=== PATIENT | female | born 1950 | race Caucasian/White ===

== ENCOUNTER → 2016-04-08 | Outpatient (CLI) | payer OTHER ==
[~2016-04-08] MED LIST: ALBU18 IN; ARIP15TA6 OR; ATOM60CA PO; BUPR-36 OR; BUPR100T71 OR; CITA20TA3 PO; ESZO1TAB9 OR; FLUT100M7 IN; LISI-713 PO; RANI300T3 PO
== END | disposition home or self-care (01) ==
LOC: XYW 07:57
PROVIDERS: ATTEND Internal Medicine Gastroenterology
DX: R10.11 Right upper quadrant pain (principal)
CPT/HCPCS: 78226; A9537

== ENCOUNTER → 2016-06-09 | Outpatient (CLI) | payer OTHER ==
[2016-06-09 10:12] LABS: Basophils # (auto) 0 uL; Basophils % (auto) 0.8 % (0.0-2.0); Eosinophils # (auto) 0.2 uL; Hematocrit 38.3 % (36.0-46.0); Hemoglobin 12.7 g/dL (12.2-16.2); Lymphocytes # (auto) 1.1 uL; Lymphocytes % (auto) 18.4 % (10.0-50.0); Mean Corpuscular Hemoglobin 28.3 pg (28.0-32.0); Mean Corpuscular Hgb Conc. 33.2 g/dL (32.0-36.0); Mean Corpuscular Volume 85.4 fL (80.0-100.0); Mean Platelet Volume 8.1 fL (7.4-10.4); Monocytes # (auto) 0.3 uL; Neutrophils # (auto) 4.3 uL; Neutrophils % (auto) 71.8 % (37.0-80.0); Platelet Count (auto) 239 10^3/uL (140-450); Red Cell Distribution Width 14.1 % (11.6-16.0)
[2016-06-09 10:25] LABS: INR 1.03 (0.9-1.15); Prothrombin Time 10.6 sec (9.37-12.3)
[2016-06-09 10:36] LABS: BUN/Creatinine Ratio 15.8; Bilirubin, Total 0.6 mg/dL (0.2-1.0); Calcium 9.1 mg/dL (8.5-10.1); Potassium 4.3 mmol/L (3.5-5.1); Total Protein 7.1 g/dL (6.4-8.2)
== END | disposition home or self-care (01) ==
LOC: LAB 09:13
PROVIDERS: ATTEND Internal Medicine Cardiovascular Disease
DX: Z01.810 Encounter for preprocedural cardiovascular examination (principal); R07.9 Chest pain, unspecified
CPT/HCPCS: 36415; 80053; 85025; 85610; 85730

== ENCOUNTER 2016-06-10 07:41 | Day surgery (SDC) | payer OTHER ==
[2016-06-10] MEDS ORDERED: LIDOCAINE 2%HCL (LOCAL ANESTH.) INJ 20ML MDV ONE (07:44)
[2016-06-10] MEDS ORDERED: IODIXANOL 320MG/ML 100ML BTL IV ONE ×2 (07:47→10:59)
[2016-06-10] MEDS ORDERED: PRO20T PO (08:42)
[2016-06-10] MEDS ORDERED: OXYB10TA13 PO (08:42)
[2016-06-10] MEDS ORDERED: VORT1TAB3 PO (08:42)
[2016-06-10] MEDS ORDERED: NITR0.4S29 SL (08:42)
[2016-06-10] MEDS ORDERED: HYDR-531 PO (08:42)
[2016-06-10] MEDS ORDERED: ATOR40TA52 PO (08:42)
[2016-06-10] MEDS ORDERED: POTA10TA51 PO (08:42)
[2016-06-10] MEDS ORDERED: PANT40T PO (08:42)
[2016-06-10] MEDS ORDERED: HYDR25TA4 PO (08:42)
[2016-06-10] MEDS ORDERED: ANGIOMAX 250 MG VIAL IV ONE (10:59)
[2016-06-10] MEDS ORDERED: MIDAZOLAM HCL 1MG/1ML-2 ML VIAL ONE (10:59)
[2016-06-10] MEDS ORDERED: EPTIFIBATIDE INJ (2MG/ML) 10ML VIAL IV ONE (10:59)
[2016-06-10] MEDS ORDERED: fentaNYL CITRATE 100 MCG/2 ML VL ONE (10:59)
[2016-06-10] MEDS ORDERED: SODIUM CHL 0.9% 0 ML ONE (10:59)
== END 2016-06-10 14:15 | disposition home or self-care (01) ==
LOC: CATH 07:41
PROVIDERS: ATTEND Internal Medicine Cardiovascular Disease
DX: I25.10 Atherosclerotic heart disease of native coronary artery without angina pectoris (principal); I50.30 Unspecified diastolic (congestive) heart failure; I10 Essential (primary) hypertension; J44.9 Chronic obstructive pulmonary disease, unspecified; J40 Bronchitis, not specified as acute or chronic; Z90.710 Acquired absence of both cervix and uterus; F31.9 Bipolar disorder, unspecified; F41.9 Anxiety disorder, unspecified; F32.9 Major depressive disorder, single episode, unspecified; Z87.891 Personal history of nicotine dependence
CPT/HCPCS: 93458; J2250; Q9967

== ENCOUNTER → 2016-08-05 | Outpatient (CLI) | payer OTHER ==
[~2016-08-05] MED LIST changes: -ATOM60CA PO; +ATOR40TA52 PO; -BUPR-36 OR; -BUPR100T71 OR; +HYDR-531 PO; +HYDR25TA4 PO; +NITR0.4S29 SL; +OXYB10TA13 PO; +PANT40T PO; +POTA10TA51 PO; +PRO20T PO; -RANI300T3 PO; +VORT1TAB3 PO
== END | disposition home or self-care (01) ==
LOC: XY 07:34
DX: K82.8 Other specified diseases of gallbladder (principal)
CPT/HCPCS: 78226; A9537

== ENCOUNTER 2016-09-24 06:15 | Day surgery (SDC) | payer OTHER ==
[2016-09-22 12:45] LABS: Urine RBC None Seen /hpf (0 - 4)
[2016-09-22 13:02] LABS: Basophils # (auto) 0 uL; Basophils % (auto) 0.7 % (0.0-2.0); CONDITION Y; Eosinophils # (auto) 0.2 uL; Eosinophils % (auto) 4.6 % (0.0-7.0); Hematocrit 36.5 % (36.0-46.0); Hemoglobin 12.8 g/dL (12.2-16.2); Mean Corpuscular Hemoglobin 30.4 pg (28.0-32.0); Mean Corpuscular Hgb Conc. 34.9 g/dL (32.0-36.0); Mean Platelet Volume 7.9 fL (7.4-10.4); Monocytes # (auto) 0.3 uL; Monocytes % (auto) 7.2 % (0.0-12.0); Neutrophils % (auto) 65.5 % (37.0-80.0); Platelet Count (auto) 240 10^3/uL (140-450); Red Cell Distribution Width 13.5 % (11.6-16.0); White Blood Cell 4.6 10^3/uL (4.4-10.8)
[2016-09-22 13:05] LABS: Urine Bilirubin Negative (Negative); Urine Blood Negative /uL (Negative); Urine Color Yellow (Yellow); Urine Glucose Normal (Normal); Urine Ketone Negative (Negative); Urine Nitrite Negative (Negative); Urine Urobilinogen Normal (Negative)
[2016-09-22 13:11] LABS: INR 0.96 (0.9-1.15); Partial Thromboplastin Time 30.1 sec (22.64-33.71); Prothrombin Time 10.5 sec (9.37-12.3)
[2016-09-22 13:16] LABS: Calcium 8.8 mg/dL (8.5-10.1); Potassium 4.2 mmol/L (3.5-5.1)
[2016-09-22 13:19] LABS: Albumin 3.9 g/dL (3.4-5.0); BUN/Creatinine Ratio 17.5
[2016-09-22 13:23] LABS: Bilirubin, Total 0.4 mg/dL (0.2-1.0); Total Protein 6.5 g/dL (6.4-8.2)
[~2016-09-24] VITALS: Ht 157.5 cm; Wt 68.0 kg
[~2016-09-24 06:15] MED LIST changes: +ASPI-231 PO; -CITA20TA3 PO; +ENA10T PO; -HYDR-531 PO; -OXYB10TA13 PO; +PERCOT PO
[2016-09-24] MEDS ORDERED: ceFOXitin 2GM/100ML D5W 100 ML IV ONE (06:25)
[2016-09-24] MEDS ORDERED: PHENYLEPHRINE HCL 10 MG/ML VL IV ONE (07:15)
[2016-09-24] MEDS ORDERED: BUPIVACAINE 0.25% INJ 50ML VIAL ONE (07:21)
[2016-09-24] MEDS ORDERED: BUPIVACAINE HCL 50 ML ONE (07:21)
[2016-09-24] MEDS ORDERED: LIDOCAINE 1% HCL (LOCAL ANESTH.) INJ 20ML MDV ONE (07:21)
[2016-09-24] MEDS ORDERED: DEXAMETHASONE SOD PHOS 10MG/1ML VIAL INJ ONE (07:26)
[2016-09-24] MEDS ORDERED: fentaNYL CITRATE 100 MCG/2 ML VL ONE (07:26)
[2016-09-24] MEDS ORDERED: MIDAZOLAM HCL 1MG/1ML-2 ML VIAL ONE (07:26)
[2016-09-24] MEDS ORDERED: MEPERIDINE HCL (50 MG/ML) 1 ML VIAL ONE (07:26)
[2016-09-24] MEDS ORDERED: PROPOFOL 10 MG/ML 20 ML IV ONE (07:26)
[2016-09-24] MEDS ORDERED: NEOSTIGMINE 1 MG/ML INJ (10mg/10ML VIAL) ONE (07:55)
[2016-09-24] MEDS ORDERED: ROCURONIUM 10MG/ML 10ML VIAL IV ONE (07:55)
[2016-09-24] MEDS ORDERED: GLYCOPYRROLATE 0.2 MG/ML 1ML VIAL ONE (08:15)
[2016-09-24] MEDS ORDERED: KETOROLAC TROMETH 30 MG/ML 1ML VIAL ONE (08:23)
[2016-09-24] MEDS ORDERED: ONDANSETRON HCL 4 MG/2 ML VIAL IV ONE (08:30)
[2016-09-24] MEDS ORDERED: LABETALOL HCL 5 MG/ML 4ML SYRINGE IV PRN (08:30)
[2016-09-24] MEDS ORDERED: KETOROLAC TROMETH 30 MG/ML 1ML VIAL IV ONE (08:30)
[2016-09-24] MEDS ORDERED: MORPHINE SULF INJ 2 MG/ML SYRINGE 1ML IV PRN (08:30)
[2016-09-24] MEDS ORDERED: HYDROmorphone HCL 2 MG/ML VL IV PRN (08:30)
[2016-09-24] MEDS ORDERED: ePHEDrine SULFATE 50 MG/ML AMP IV PRN (08:30)
[2016-09-24] MEDS ORDERED: MIDAZOLAM HCL 1MG/1ML-2 ML VIAL IV PRN (08:30)
[2016-09-24 09:45] VITALS: BP 144/78
== END 2016-09-24 09:59 | disposition home or self-care (01) ==
LOC: SUR 06:15
PROVIDERS: ATTEND Surgery
DX: K82.8 Other specified diseases of gallbladder (principal); K66.0 Peritoneal adhesions (postprocedural) (postinfection); J44.9 Chronic obstructive pulmonary disease, unspecified; G47.30 Sleep apnea, unspecified; Z90.710 Acquired absence of both cervix and uterus; F31.9 Bipolar disorder, unspecified; F41.9 Anxiety disorder, unspecified; F32.9 Major depressive disorder, single episode, unspecified; Z87.891 Personal history of nicotine dependence
CPT/HCPCS: 36415; 47562; 80053; 81001; 85025; 85610; 85730; 86850; 86900; 86901; 88304; J0694; J1100; J1170; J1885; J2001; J2175; J2250; J2370; J2704; J3010; J3490

== ENCOUNTER → 2017-03-24 | Outpatient (CLI) | payer OTHER ==
[2017-03-24 08:17] LABS: Albumin 3.4 g/dL (3.4-5.0); BUN/Creatinine Ratio 15.8; Bilirubin, Total 0.4 mg/dL (0.2-1.0); Calcium 8.6 mg/dL (8.5-10.1); Potassium 3.9 mmol/L (3.5-5.1); Total Protein 6.5 g/dL (6.4-8.2)
== END | disposition home or self-care (01) ==
LOC: LAB 07:24
PROVIDERS: ATTEND Internal Medicine
DX: I50.32 Chronic diastolic (congestive) heart failure (principal); J44.9 Chronic obstructive pulmonary disease, unspecified
CPT/HCPCS: 36415; 80053; 80061; 83036; 84443; 86141

== ENCOUNTER → 2017-11-25 | Outpatient (CLI) | payer OTHER ==
[2017-11-25 13:55] LABS: Basophils # (auto) 0.1 uL; Basophils % (auto) 0.7 % (0.0-2.0); Eosinophils # (auto) 0.1 uL; Eosinophils % (auto) 1.5 % (0.0-7.0); Hematocrit 39.5 % (36.0-46.0); Hemoglobin 13.6 g/dL (12.2-16.2); Lymphocytes # (auto) 1.4 uL; Lymphocytes % (auto) 18.2 % (10.0-50.0); Mean Corpuscular Hemoglobin 29.1 pg (28.0-32.0); Mean Corpuscular Hgb Conc. 34.5 g/dL (32.0-36.0); Mean Corpuscular Volume 84.3 fL (80.0-100.0); Monocytes # (auto) 0.5 uL; Monocytes % (auto) 6.1 % (0.0-12.0); Neutrophils # (auto) 5.5 uL; Neutrophils % (auto) 73.5 % (37.0-80.0); Nucleated Red Blood Cells % 0.2 %; Platelet Count (auto) 245 10^3/uL (140-450); Red Blood Cells 4.69 10^6/uL (4.0-5.20); Red Cell Distribution Width 14.1 % (11.8-14.3); White Blood Cell 7.5 10^3/uL (4.4-10.8)
[2017-11-25 14:01] LABS: INR 0.97 (0.9-1.15); Partial Thromboplastin Time 32.2 sec (23.78-33.04); Prothrombin Time 10.4 sec (9.27-12.13)
[2017-11-25 14:06] LABS: BUN/Creatinine Ratio 12.2; Bilirubin, Total 0.3 mg/dL (0.2-1.0); Calcium 8.8 mg/dL (8.5-10.1); Potassium 3.8 mmol/L (3.5-5.1); Total Protein 7.4 g/dL (6.4-8.2)
[2017-11-25 16:35] LABS: Urine Bacteria NONE SEEN /hpf (None Seen); Urine Blood Negative /uL (Negative); Urine Specific Gravity 1.013 (1.001-1.035); Urine WBC 1 /hpf (0 - 5)
== END | disposition home or self-care (01) ==
LOC: LAB 13:25
PROVIDERS: ATTEND Internal Medicine
DX: Z01.818 Encounter for other preprocedural examination (principal); I10 Essential (primary) hypertension; J44.9 Chronic obstructive pulmonary disease, unspecified; Z87.891 Personal history of nicotine dependence; Z90.49 Acquired absence of other specified parts of digestive tract; Z79.899 Other long term (current) drug therapy
CPT/HCPCS: 36415; 80053; 81001; 85025; 85610; 85730

== ENCOUNTER → 2017-12-31 | Outpatient (CLI) | payer OTHER ==
[2017-12-31 07:23] LABS: Urine Blood Negative /uL (Negative); Urine Specific Gravity 1.005 (1.001-1.035)
[2017-12-31 07:31] LABS: Basophils # (auto) 0.1 uL; Basophils % (auto) 1.1 % (0.0-2.0); Eosinophils # (auto) 0.3 uL; Eosinophils % (auto) 5.3 % (0.0-7.0); Hematocrit 37.8 % (36.0-46.0); Hemoglobin 12.8 g/dL (12.2-16.2); Lymphocytes # (auto) 1.1 uL; Lymphocytes % (auto) 21.8 % (10.0-50.0); Mean Corpuscular Hemoglobin 29.1 pg (28.0-32.0); Mean Corpuscular Hgb Conc. 33.8 g/dL (32.0-36.0); Monocytes # (auto) 0.3 uL; Monocytes % (auto) 7.1 % (0.0-12.0); Neutrophils # (auto) 3.2 uL; Neutrophils % (auto) 64.7 % (37.0-80.0); Nucleated Red Blood Cells % 0.1 %; Platelet Count (auto) 225 10^3/uL (140-450); Red Cell Distribution Width 14.7 % (11.8-14.3); White Blood Cell 4.9 10^3/uL (4.4-10.8)
[2017-12-31 07:42] LABS: INR 0.93 (0.9-1.15); Partial Thromboplastin Time 30.7 sec (23.78-33.04)
[2017-12-31 08:02] LABS: Albumin 3.8 g/dL (3.4-5.0); Bilirubin, Total 0.4 mg/dL (0.2-1.0); Calcium 8.8 mg/dL (8.5-10.1); Potassium 3.5 mmol/L (3.5-5.1)
== END | disposition home or self-care (01) ==
LOC: LAB 07:06
DX: Z01.812 Encounter for preprocedural laboratory examination (principal); H25.11 Age-related nuclear cataract, right eye; D68.32 Hemorrhagic disorder due to extrinsic circulating anticoagulants; Z79.01 Long term (current) use of anticoagulants
CPT/HCPCS: 36415; 80053; 81003; 85025; 85610; 85730

== ENCOUNTER → 2018-05-27 | Outpatient (CLI) | payer OTHER ==
[~2018-05-27] VITALS: Ht 157.5 cm; Wt 68.0 kg
[~2018-05-27] MED LIST changes: +ADENOSINE 57 MG in GIVE UN-DILUTED 0 ML IV ONE; +ALBUTEROL SULF 2.5 MG/0.5ML(0.5%) NEB SOLN ONE; +IPRATROPIUM BROM 0.5 MG/2.5ML INH SOL ONE
[2018-05-27 09:29] VITALS: BP 123/77
== END | disposition home or self-care (01) ==
LOC: XY 07:39
PROVIDERS: ATTEND Internal Medicine
DX: I10 Essential (primary) hypertension (principal); J44.9 Chronic obstructive pulmonary disease, unspecified; Z79.899 Other long term (current) drug therapy
CPT/HCPCS: 78452; 93017; 94640; A9500; J0153; J7611; J7644

== ENCOUNTER → 2018-06-03 | Outpatient (CLI) | payer OTHER ==
[~2018-06-03] MED LIST changes: -ADENOSINE 57 MG in GIVE UN-DILUTED 0 ML IV ONE; -ALBUTEROL SULF 2.5 MG/0.5ML(0.5%) NEB SOLN ONE; -IPRATROPIUM BROM 0.5 MG/2.5ML INH SOL ONE
== END | disposition home or self-care (01) ==
LOC: XY 07:26
PROVIDERS: ATTEND Internal Medicine
DX: I10 Essential (primary) hypertension (principal); J44.9 Chronic obstructive pulmonary disease, unspecified; Z79.899 Other long term (current) drug therapy
CPT/HCPCS: 93306

== ENCOUNTER → 2018-11-11 | Outpatient (CLI) | payer OTHER ==
[~2018-11-11] MED LIST changes: -ENA10T PO; +ENAL10TA PO
[2018-11-11 08:16] LABS: Basophils # (auto) 0 uL; Basophils % (auto) 0.9 % (0.0-2.0); Eosinophils # (auto) 0.1 uL; Eosinophils % (auto) 2.5 % (0.0-7.0); Hematocrit 37.1 % (36.0-46.0); Hemoglobin 12.5 g/dL (12.2-16.2); Lymphocytes # (auto) 1.1 uL; Lymphocytes % (auto) 26.2 % (10.0-50.0); Mean Corpuscular Hemoglobin 29.2 pg (28.0-32.0); Mean Corpuscular Hgb Conc. 33.5 g/dL (32.0-36.0); Monocytes # (auto) 0.3 uL; Monocytes % (auto) 7.6 % (0.0-12.0); Neutrophils # (auto) 2.7 uL; Neutrophils % (auto) 62.8 % (37.0-80.0); Platelet Count (auto) 208 10^3/uL (140-450); Red Blood Cells 4.27 10^6/uL (4.0-5.20); Red Cell Distribution Width 14.4 % (11.8-14.3); White Blood Cell 4.3 10^3/uL (4.4-10.8)
[2018-11-11 08:35] LABS: Albumin 3.5 g/dL (3.4-5.0); BUN/Creatinine Ratio 13.4; Bilirubin, Total 0.3 mg/dL (0.2-1.0); Calcium 8.7 mg/dL (8.5-10.1); Total Protein 6.6 g/dL (6.4-8.2)
== END | disposition home or self-care (01) ==
LOC: LAB 07:13
PROVIDERS: ATTEND Internal Medicine
DX: I25.10 Atherosclerotic heart disease of native coronary artery without angina pectoris (principal); I10 Essential (primary) hypertension
CPT/HCPCS: 36415; 80053; 80061; 83036; 84439; 84443; 85025; 85652

== ENCOUNTER → 2019-02-15 | Day surgery (SDC) | payer OTHER ==
[2019-02-11 11:03] LABS: Urine Blood Negative /uL (Negative); Urine Specific Gravity 1.006 (1.001-1.035)
[2019-02-11 11:35] LABS: Basophils # (auto) 0 uL; Basophils % (auto) 0.7 % (0.0-2.0); Eosinophils # (auto) 0.3 uL; Hematocrit 39.9 % (36.0-46.0); Hemoglobin 13.4 g/dL (12.2-16.2); Lymphocytes # (auto) 1.3 uL; Lymphocytes % (auto) 21.8 % (10.0-50.0); Mean Corpuscular Hemoglobin 28.9 pg (28.0-32.0); Mean Corpuscular Hgb Conc. 33.6 g/dL (32.0-36.0); Mean Corpuscular Volume 86.2 fL (80.0-100.0); Monocytes # (auto) 0.6 uL; Monocytes % (auto) 10.5 % (0.0-12.0); Neutrophils # (auto) 3.6 uL; Platelet Count (auto) 224 10^3/uL (140-450); Red Blood Cells 4.63 10^6/uL (4.0-5.20); Red Cell Distribution Width 14.2 % (11.8-14.3); White Blood Cell 5.8 10^3/uL (4.4-10.8)
[2019-02-11 11:47] LABS: INR < 0.93 (0.9-1.15)
[2019-02-11 11:58] LABS: Albumin 3.6 g/dL (3.4-5.0); Calcium 8.9 mg/dL (8.5-10.1); Potassium 3.7 mmol/L (3.5-5.1)
[2019-02-11 12:02] LABS: BUN/Creatinine Ratio 10.3; Bilirubin, Total 0.4 mg/dL (0.2-1.0); Total Protein 6.7 g/dL (6.4-8.2)
[~2019-02-15] VITALS: Ht 157.5 cm; Wt 73.5 kg
[~2019-02-15] MED LIST changes: +AMLO5TAB15 PO; +BUPIVACAINE 0.25% INJ 50ML VIAL ONE; +CITA10TA59 PO; +DexAMETHasone SOD PHOS 10MG/1ML VIAL INJ ONE; -ENAL10TA PO; +HYDROmorphone HCL 2 MG/ML VL IV PRN; +KETOROLAC TROMETH 30 MG/ML 1ML VIAL IV ONE; -LISI-713 PO; +MEPERIDINE HCL (25 MG/ML) 1ML VIAL ONE; +MIDAZOLAM HCL 1MG/1ML-2 ML VIAL IV PRN; +MIDAZOLAM HCL 1MG/1ML-2 ML VIAL ONE; +MORPHINE SULF INJ 2 MG/ML SYRINGE 1ML IV PRN; +ONDANSETRON HCL 4 MG/2 ML VIAL IV PRN; -PERCOT PO; -POTA10TA51 PO; +PROPOFOL 10 MG/ML 20 ML IV ONE; -VORT1TAB3 PO; +ceFAZolin 1GM/50ML 50 ML IV ONE; +ePHEDrine SULFATE 50 MG/ML AMP IV PRN; +fentaNYL CITRATE 100 MCG/2 ML VL ONE
[2019-02-15] MEDS: LABETALOL HCL 5 MG/ML 4ML SYRINGE IV PRN ×4 (14:16→15:02)
[2019-02-15 15:18] VITALS: BP 125/86
== END | disposition home or self-care (01) ==
LOC: SUR 09:16
PROVIDERS: ATTEND Orthopaedic Surgery
DX: T84.84XA Pain due to internal orthopedic prosthetic devices, implants and grafts, initial encounter (principal); M62.89 Other specified disorders of muscle; J44.9 Chronic obstructive pulmonary disease, unspecified; I25.2 Old myocardial infarction; I10 Essential (primary) hypertension; I25.10 Atherosclerotic heart disease of native coronary artery without angina pectoris; E78.5 Hyperlipidemia, unspecified; K21.9 Gastro-esophageal reflux disease without esophagitis; F41.9 Anxiety disorder, unspecified; F31.9 Bipolar disorder, unspecified; Z79.899 Other long term (current) drug therapy; Z96.643 Presence of artificial hip joint, bilateral; Z91.81 History of falling; Z90.710 Acquired absence of both cervix and uterus; Z90.49 Acquired absence of other specified parts of digestive tract; Z98.890 Other specified postprocedural states
CPT/HCPCS: 15770; 20680; 36415; 80053; 81003; 85025; 85610; 85730; 93005; C1713; C1762; J0690; J1100; J2175; J2250; J2704; J3010; J3490; Q4100

== ENCOUNTER → 2020-03-22 | Outpatient (CLI) | payer OTHER ==
[~2020-03-22] MED LIST changes: -BUPIVACAINE 0.25% INJ 50ML VIAL ONE; -DexAMETHasone SOD PHOS 10MG/1ML VIAL INJ ONE; -HYDROmorphone HCL 2 MG/ML VL IV PRN; -KETOROLAC TROMETH 30 MG/ML 1ML VIAL IV ONE; -MEPERIDINE HCL (25 MG/ML) 1ML VIAL ONE; -MIDAZOLAM HCL 1MG/1ML-2 ML VIAL IV PRN; -MIDAZOLAM HCL 1MG/1ML-2 ML VIAL ONE; -MORPHINE SULF INJ 2 MG/ML SYRINGE 1ML IV PRN; -ONDANSETRON HCL 4 MG/2 ML VIAL IV PRN; -PROPOFOL 10 MG/ML 20 ML IV ONE; -ceFAZolin 1GM/50ML 50 ML IV ONE; -ePHEDrine SULFATE 50 MG/ML AMP IV PRN; -fentaNYL CITRATE 100 MCG/2 ML VL ONE
[2020-03-22 08:45] LABS: Basophils # (auto) 0 10 ^3/uL (0-0.2); Basophils % (auto) 0.6 % (0.0-2.0); Eosinophils # (auto) 0.1 10 ^3/uL (0-0.8); Eosinophils % (auto) 1.5 % (0.0-7.0); Hematocrit 39.8 % (36.0-46.0); Hemoglobin 13.4 g/dL (12.2-16.2); Lymphocytes % (auto) 29.6 % (10.0-50.0); Mean Corpuscular Hemoglobin 30.5 pg (28.0-32.0); Mean Corpuscular Hgb Conc. 33.8 g/dL (32.0-36.0); Mean Corpuscular Volume 90.1 fL (80.0-100.0); Monocytes # (auto) 0.6 10 ^3/uL (0-1.3); Monocytes % (auto) 8.4 % (0.0-12.0); Neutrophils % (auto) 59.9 % (37.0-80.0); Platelet Count (auto) 263 10^3/uL (140-450); Red Blood Cells 4.41 10^6/uL (4.0-5.20); Red Cell Distribution Width 14.2 % (11.8-14.3); White Blood Cell 6.7 10^3/uL (4.4-10.8)
[2020-03-22 08:46] LABS: Urine Bacteria NONE SEEN /hpf (None Seen); Urine Blood Negative /uL (Negative); Urine Specific Gravity 1.016 (1.001-1.035); Urine WBC 1 /hpf (0 - 5)
[2020-03-22 09:07] LABS: Potassium 3.8 mmol/L (3.5-5.1)
[2020-03-22 09:15] LABS: Albumin 3.5 g/dL (3.4-5.0); BUN/Creatinine Ratio 16.8; Bilirubin, Total 0.4 mg/dL (0.2-1.0); Calcium 8.8 mg/dL (8.5-10.1); Total Protein 7.1 g/dL (6.4-8.2)
== END | disposition home or self-care (01) ==
LOC: LAB 07:09
PROVIDERS: ATTEND Internal Medicine
DX: I10 Essential (primary) hypertension (principal); J44.9 Chronic obstructive pulmonary disease, unspecified; E78.5 Hyperlipidemia, unspecified
CPT/HCPCS: 36415; 80053; 80061; 81001; 82785; 84439; 84443; 85025; 85652

== ENCOUNTER → 2020-08-31 | Outpatient (CLI) | payer OTHER ==
[~2020-08-31] MED LIST changes: +ALBU108A5 IN; +AMLO-489 PO; -AMLO5TAB15 PO; -CITA10TA59 PO; +CITA10TA8 PO; +ESCI20TA PO; +IPRIH IN; +OXYC-963 PO
[2020-08-31 11:19] LABS: Basophils # (auto) 0.1 10 ^3/uL (0-0.2); Basophils % (auto) 1.1 % (0.0-2.0); Eosinophils # (auto) 0.1 10 ^3/uL (0-0.8); Hematocrit 40.7 % (36.0-46.0); Lymphocytes # (auto) 1.4 10 ^3/uL (0.4-5.4); Mean Corpuscular Hemoglobin 30.8 pg (28.0-32.0); Mean Corpuscular Hgb Conc. 34.3 g/dL (32.0-36.0); Mean Corpuscular Volume 89.7 fL (80.0-100.0); Monocytes # (auto) 0.4 10 ^3/uL (0-1.3); Monocytes % (auto) 6.5 % (0.0-12.0); Neutrophils # (auto) 4.3 10 ^3/uL (1.6-8.6); Neutrophils % (auto) 68.4 % (37.0-80.0); Nucleated Red Blood Cells % 0.1 %; Platelet Count (auto) 250 10^3/uL (140-450); Red Blood Cells 4.54 10^6/uL (4.0-5.20); Red Cell Distribution Width 13.2 % (11.8-14.3); White Blood Cell 6.2 10^3/uL (4.4-10.8)
[2020-08-31 11:32] LABS: INR 0.96 (0.9-1.15); Partial Thromboplastin Time 29.9 sec (23.0-31.2)
[2020-08-31 11:51] LABS: Calcium 9.1 mg/dL (8.5-10.1); Potassium 3.7 mmol/L (3.5-5.1)
[2020-08-31 11:57] LABS: Bilirubin, Total 0.4 mg/dL (0.2-1.0); Total Protein 7.3 g/dL (6.4-8.2)
== END | disposition home or self-care (01) ==
LOC: LAB 11:05
PROVIDERS: ATTEND Internal Medicine
DX: Z01.812 Encounter for preprocedural laboratory examination (principal)
CPT/HCPCS: 36415; 80053; 85025; 85610; 85730

== ENCOUNTER 2020-09-05 06:50 | Day surgery (SDC) | payer OTHER ==
[~2020-09-05] VITALS: Ht 157.5 cm; Wt 71.2 kg
[~2020-09-05 06:50] MED LIST changes: -ALBU18 IN; -ASPI-231 PO; -CITA10TA8 PO; -ESZO1TAB9 OR; -FLUT100M7 IN; -NITR0.4S29 SL
[2020-09-05] MEDS ORDERED: IODIXANOL 320MG/ML 100ML BTL IV ONE (09:24)
[2020-09-05] MEDS ORDERED: LIDOCAINE 2%HCL (LOCAL ANESTH.) INJ 20ML MDV ONE (09:24)
[2020-09-05] MEDS ORDERED: ANGIOMAX 250 MG VIAL IV ONE (09:28)
[2020-09-05] MEDS ORDERED: HEPARIN SODIUM (PORCINE) 5000 UNITS/ML 1ML VIAL ONE (09:28)
[2020-09-05] MEDS ORDERED: VERAPAMIL 2.5MG/ML INJ 2ML VIAL IV ONE (09:28)
[2020-09-05] MEDS ORDERED: fentaNYL CITRATE 100 MCG/2 ML VL ONE (09:28)
[2020-09-05] MEDS ORDERED: SODIUM CHL 0.9% 0 ML ONE (09:29)
[2020-09-05] MEDS ORDERED: MIDAZOLAM HCL 1MG/1ML-2 ML VIAL ONE (09:29)
[2020-09-05] MEDS ORDERED: IOHEXOL 350 MG/ML 100ML IJ ONE (09:29)
[2020-09-05] MEDS ORDERED: diphenhdrAMINE HCL 50 MG/1 ML VL ONE (10:02)
== END 2020-09-05 13:22 | disposition home or self-care (01) ==
LOC: CATH 06:50
PROVIDERS: ATTEND Internal Medicine
DX: I25.10 Atherosclerotic heart disease of native coronary artery without angina pectoris (principal); I10 Essential (primary) hypertension; J44.9 Chronic obstructive pulmonary disease, unspecified; G47.30 Sleep apnea, unspecified; F31.89 Other bipolar disorder; F41.9 Anxiety disorder, unspecified; Z20.822 Contact with and (suspected) exposure to COVID-19; Z98.890 Other specified postprocedural states; Z87.891 Personal history of nicotine dependence; Z79.899 Other long term (current) drug therapy; Z90.710 Acquired absence of both cervix and uterus
CPT/HCPCS: 93458; C1887; C1894; J1200; J1644; J2250; J3010; J7030; Q9967; U0003; 99152; 99153

== ENCOUNTER 2022-03-25 06:15 | Inpatient (IN) | payer OTHER ==
[2022-03-20 09:18] LABS: Basophils # (auto) 0.1 10 ^3/uL (0-0.2); Basophils % (auto) 1.5 % (0.0-2.0); Eosinophils # (auto) 0.2 10 ^3/uL (0-0.8); Eosinophils % (auto) 2.5 % (0.0-7.0); Hematocrit 41.8 % (36.0-46.0); Hemoglobin 13.8 g/dL (12.2-16.2); Lymphocytes # (auto) 1.1 10 ^3/uL (0.4-5.4); Lymphocytes % (auto) 15.9 % (10.0-50.0); Mean Corpuscular Hemoglobin 29.1 pg (28.0-32.0); Mean Corpuscular Hgb Conc. 33.1 g/dL (32.0-36.0); Monocytes # (auto) 0.3 10 ^3/uL (0-1.3); Monocytes % (auto) 4.9 % (0.0-12.0); Neutrophils # (auto) 5.2 10 ^3/uL (1.6-8.6); Neutrophils % (auto) 75.2 % (37.0-80.0); Nucleated Red Blood Cells % 0.1 %; Red Blood Cells 4.75 10^6/uL (4.0-5.20); White Blood Cell 6.9 10^3/uL (4.4-10.8)
[2022-03-20 09:31] LABS: INR 0.95 (0.9-1.15); Partial Thromboplastin Time 30.3 sec (24.6-33.4)
[2022-03-20 10:00] LABS: Albumin 3.9 g/dL (3.4-5.0); Calcium 9.1 mg/dL (8.5-10.1); Potassium 4.4 mmol/L (3.5-5.1)
[2022-03-20 10:05] LABS: BUN/Creatinine Ratio 16.5; Bilirubin, Total 0.6 mg/dL (0.2-1.0); Total Protein 7.2 g/dL (6.4-8.2)
[2022-03-20 10:09] LABS: Urine Bacteria NONE SEEN /hpf (None Seen); Urine Blood Negative /uL (Negative); Urine Specific Gravity 1.015 (1.001-1.035); Urine WBC 1 /hpf (0 - 5)
[~2022-03-25] VITALS: Ht 157.5 cm; Wt 75.0 kg
[~2022-03-25 06:15] MED LIST changes: -AMLO-489 PO; +BUPR1TAB11 PO; +BUSP15TA60 PO; +FLUT1AER3 IN; +GABA100C9 PO; -IPRIH IN; +LOSA25TA38 PO
[2022-03-25] MEDS ORDERED: ceFAZolin 1GM/50ML 100 ML IV ONE (06:33)
[2022-03-25] MEDS ORDERED: TRANEXAMIC ACID 0 ML ONE (06:51)
[2022-03-25] MEDS ORDERED: BUPIVACAINE 0.25% INJ 50ML VIAL ONE (06:51)
[2022-03-25] MEDS ORDERED: VANCOMYCIN HCL 1000 MG VL ONE ×2 (06:53→07:33)
[2022-03-25] MEDS ORDERED: TRANEXAMIC ACID 20 ML ONE (07:03)
[2022-03-25] MEDS ORDERED: LIDOCAINE 2% (LOCAL ANESTH.) PF 5ml SDV ONE (07:25)
[2022-03-25] MEDS ORDERED: DexAMETHasone SOD PHOS 10MG/1ML VIAL INJ ONE ×2 (07:25→11:06)
[2022-03-25] MEDS ORDERED: ONDANSETRON HCL 4 MG/2 ML VIAL ONE ×2 (07:25→11:06)
[2022-03-25] MEDS ORDERED: KETOROLAC TROMETH 30 MG/ML 1ML VIAL ONE (07:25)
[2022-03-25] MEDS ORDERED: PROPOFOL 10 MG/ML 20 ML IV ONE (07:25)
[2022-03-25] MEDS ORDERED: GLYCOPYRROLATE 0.2 MG/ML 1ML VIAL ONE (07:25)
[2022-03-25] MEDS ORDERED: HYDROcodone-ACET 5/325MG TAB PO PRN (07:45)
[2022-03-25] MEDS ORDERED: NITROGLYCERIN 0.4 MG SL TAB SL PRN (07:45)
[2022-03-25] MEDS ORDERED: MORPHINE SULFATE INJ 2 MG/ml SYRG IV PRN (07:45)
[2022-03-25] MEDS ORDERED: ceFAZolin 1GM/50ML 50 ML IV SCH (07:45)
[2022-03-25] MEDS ORDERED: HYDROmorphone HCL 2 MG/ML VL/or syr IV PRN (07:45)
[2022-03-25] MEDS ORDERED: LACTATED RINGER'S 1,000 ML IV SCH (07:45)
[2022-03-25] MEDS ORDERED: SODIUM CHLORIDE LOCK 10 ML ONE ×2 (07:49→07:56)
[2022-03-25] MEDS ORDERED: ePHEDrine SULFATE 50 MG/ML AMP ONE (07:49)
[2022-03-25] MEDS ORDERED: ROCURONIUM 10MG/ML 10ML VIAL IV ONE (10:54)
[2022-03-25] MEDS ORDERED: ceFAZolin 1GM VL ONE (11:02)
[2022-03-25] MEDS ORDERED: fentaNYL CITRATE 100 MCG/2 ML VL ONE (11:30)
[2022-03-25] MEDS ORDERED: ALBUTEROL SULF HFA 90MCG INH 200DOSE IN PRN (15:15)
[2022-03-25 15:20] VITALS: BP 117/59
[2022-03-25 16:54] LABS: Albumin 3.2 g/dL (3.4-5.0); Calcium 8.2 mg/dL (8.5-10.1); Potassium 4.2 mmol/L (3.5-5.1)
[2022-03-25 16:57] LABS: Bilirubin, Total 0.3 mg/dL (0.2-1.0)
[2022-03-25 17:00] VITALS: BP 117/59
[2022-03-25] MEDS: CLINDAMYCIN 600MG IV 50 ML IV SCH (18:12)
[2022-03-25] MEDS: GABAPENTIN 100 MG CAP PO SCH (21:31)
[2022-03-25] MEDS: busPIRone HCL 10 MG TAB PO SCH (21:32)
[2022-03-25] MEDS: PROPRANOLOL HCL 20 MG TAB PO SCH (21:39)
[2022-03-25] MEDS: OXYCODONE W/ ACETAMINOPHEN 5/325MG TABLET PO PRN (21:48)
[2022-03-25 22:00] VITALS: BP 107/60
[2022-03-25] MEDS: ARIPIPRAZOLE 15 MG PO SCH (22:00)
[2022-03-26] MEDS: CLINDAMYCIN 600MG IV 50 ML IV SCH
[2022-03-26 05:00] VITALS: BP 130/49
[2022-03-26] MEDS: OXYCODONE W/ ACETAMINOPHEN 5/325MG TABLET PO PRN ×3 (05:09→20:37)
[2022-03-26] MEDS: busPIRone HCL 10 MG TAB PO SCH ×3 (06:01→21:58)
[2022-03-26 06:31] LABS: Albumin 3.3 g/dL (3.4-5.0); Calcium 8.5 mg/dL (8.5-10.1); Potassium 4.4 mmol/L (3.5-5.1)
[2022-03-26 06:34] LABS: BUN/Creatinine Ratio 25.9; Bilirubin, Total 0.6 mg/dL (0.2-1.0); Total Protein 5.9 g/dL (6.4-8.2)
[2022-03-26 08:00] VITALS: BP 119/49
[2022-03-26 08:37] VITALS: BP 122/65
[2022-03-26] MEDS: PANTOPRAZOLE 40 MG TAB PO SCH (09:33)
[2022-03-26] MEDS: CITALOPRAM HYDROBR 20 MG TAB PO SCH (09:36)
[2022-03-26] MEDS: ATORVASTATIN 20 MG TAB PO SCH (09:37)
[2022-03-26] MEDS: LOSARTAN POTASSIUM 25 MG TAB PO SCH (09:37)
[2022-03-26] MEDS: PROPRANOLOL HCL 20 MG TAB PO SCH ×2 (09:39→21:59)
[2022-03-26] MEDS: HCTZ 25 MG TAB PO SCH (09:39)
[2022-03-26] MEDS: BUPROPION HCL 300 MG PO SCH (09:41)
[2022-03-26] MEDS ORDERED: PATIENTS OWN MEDICATION (Fluticasone-Umeclidinium-Vilan (Trelegy Ellipta 100-62.5-25 Mcg/I IN SCH (10:00)
[2022-03-26] MEDS ORDERED: OXYCODONE W/ ACETAMINOPHEN 5/325MG TABLET PO PRN (10:30)
[2022-03-26] MEDS: HYDROmorphone HCL 2 MG/ML VL/or syr IV PRN ×3 (11:21→18:11)
[2022-03-26] MEDS: IPRATROPIUM BROM 0.5 MG/2.5ML INH SOL NEB SCH ×2 (12:38→19:16)
[2022-03-26] MEDS: ALBUTEROL SULF 2.5 MG/0.5ML(0.5%) NEB SOLN NEB SCH ×2 (12:38→19:16)
[2022-03-26 13:00] VITALS: BP 103/62
[2022-03-26 16:45] VITALS: BP 105/45
[2022-03-26] MEDS: GABAPENTIN 100 MG CAP PO SCH (21:58)
[2022-03-26] MEDS: ARIPIPRAZOLE 15 MG PO SCH (21:59)
[2022-03-26 22:00] VITALS: BP 115/64
[2022-03-27] MEDS: HYDROmorphone HCL 2 MG/ML VL/or syr IV PRN (00:24)
[2022-03-27] MEDS: OXYCODONE W/ ACETAMINOPHEN 5/325MG TABLET PO PRN (04:15)
[2022-03-27 05:00] VITALS: BP 126/56
[2022-03-27] MEDS: busPIRone HCL 10 MG TAB PO SCH (06:24)
[2022-03-27] MEDS: ALBUTEROL SULF 2.5 MG/0.5ML(0.5%) NEB SOLN NEB SCH (06:52)
[2022-03-27] MEDS: IPRATROPIUM BROM 0.5 MG/2.5ML INH SOL NEB SCH (06:52)
[2022-03-27 08:59] VITALS: BP 121/55
[2022-03-27] MEDS: PROPRANOLOL HCL 20 MG TAB PO SCH (10:00)
[2022-03-27] MEDS: CITALOPRAM HYDROBR 20 MG TAB PO SCH (10:00)
[2022-03-27] MEDS: BUPROPION HCL 300 MG PO SCH (10:00)
[2022-03-27] MEDS: LOSARTAN POTASSIUM 25 MG TAB PO SCH (10:00)
[2022-03-27] MEDS: PANTOPRAZOLE 40 MG TAB PO SCH (10:00)
[2022-03-27] MEDS: ATORVASTATIN 20 MG TAB PO SCH (10:00)
[2022-03-27] MEDS: HCTZ 25 MG TAB PO SCH (10:00)
[2022-03-27 10:29] VITALS: BP 115/64
== END 2022-03-27 11:30 | disposition home or self-care (01) | DRG 483 ==
LOC: SUR 06:15 → OVERFLOW 07:45 → CENTRAL 15:32
PROVIDERS: ADMIT Orthopaedic Surgery Sports Medicine; ATTEND Internal Medicine
PROC: BP181ZZ Fluoroscopy of Right Shoulder using Low Osmolar Contrast (ICD-10-PCS; 2022-03-25)
PROC: 0RRJ00Z Replacement of Right Shoulder Joint with Reverse Ball and Socket Synthetic Substitute, Open Approach (ICD-10-PCS; principal; 2022-03-25 07:26)
DX: M19.011 Primary osteoarthritis, right shoulder (principal); I13.0 Hypertensive heart and chronic kidney disease with heart failure and stage 1 through stage 4 chronic kidney disease, or unspecified chronic kidney disease; E66.9 Obesity, unspecified; E78.5 Hyperlipidemia, unspecified; F31.9 Bipolar disorder, unspecified; K21.9 Gastro-esophageal reflux disease without esophagitis; I50.9 Heart failure, unspecified; N18.30 Chronic kidney disease, stage 3 unspecified; Z20.822 Contact with and (suspected) exposure to COVID-19; F41.9 Anxiety disorder, unspecified; J44.9 Chronic obstructive pulmonary disease, unspecified; Z68.30 Body mass index [BMI] 30.0-30.9, adult; I25.2 Old myocardial infarction; Z87.440 Personal history of urinary (tract) infections
CPT/HCPCS: 36415; 73020; 76000; 80053; 81001; 85025; 85610; 85730; 86850; 86900; 86901; 94640; 97163; G0378; J0690; J1100; J1885; J2001; J2405; J2704; J3490

== ENCOUNTER 2022-06-10 09:57 | Emergency (ER) | payer OTHER ==
[~2022-06-10] VITALS: Ht 157.5 cm; Wt 66.3 kg
[2022-06-10 13:53] VITALS: BP 166/60
== END 2022-06-10 13:57 | disposition home or self-care (01) ==
LOC: ER 09:57
DX: S00.83XA Contusion of other part of head, initial encounter (principal); I25.10 Atherosclerotic heart disease of native coronary artery without angina pectoris; J44.9 Chronic obstructive pulmonary disease, unspecified; E78.5 Hyperlipidemia, unspecified; I10 Essential (primary) hypertension; W01.0XXA Fall on same level from slipping, tripping and stumbling without subsequent striking against object, initial encounter; Y93.89 Activity, other specified; Y92.89 Other specified places as the place of occurrence of the external cause; Y99.8 Other external cause status
CPT/HCPCS: 70450; 70486; 71045; 73030; 73560

== ENCOUNTER 2022-10-01 12:19 | Day surgery (SDC) | payer OTHER ==
[2022-09-29 11:24] LABS: Basophils # (auto) 0.2 10 ^3/uL (0-0.2); Basophils % (auto) 3.2 % (0.0-2.0); Eosinophils # (auto) 0.3 10 ^3/uL (0-0.8); Eosinophils % (auto) 3.4 % (0.0-7.0); Hemoglobin 12.8 g/dL (12.2-16.2); Lymphocytes # (auto) 1.4 10 ^3/uL (0.4-5.4); Lymphocytes % (auto) 18.9 % (10.0-50.0); Mean Corpuscular Hemoglobin 29.4 pg (28.0-32.0); Mean Corpuscular Hgb Conc. 33.8 g/dL (32.0-36.0); Mean Corpuscular Volume 86.9 fL (80.0-100.0); Monocytes # (auto) 0.5 10 ^3/uL (0-1.3); Monocytes % (auto) 7.2 % (0.0-12.0); Neutrophils # (auto) 4.9 10 ^3/uL (1.6-8.6); Neutrophils % (auto) 67.3 % (37.0-80.0); Nucleated Red Blood Cells % 0.1 %; Red Blood Cells 4.37 10^6/uL (4.0-5.20); Red Cell Distribution Width 14.9 % (11.8-14.3); White Blood Cell 7.3 10^3/uL (4.4-10.8)
[2022-09-29 11:44] LABS: Urine Bacteria NONE SEEN /hpf (None Seen); Urine Blood Negative /uL (Negative); Urine Specific Gravity 1.007 (1.001-1.035); Urine WBC <1 /hpf (0 - 5)
[2022-09-29 12:00] LABS: Albumin 3.4 g/dL (3.4-5.0); Calcium 9.1 mg/dL (8.5-10.1)
[2022-09-29 12:09] LABS: BUN/Creatinine Ratio 12.3 (10.0-20.0); Bilirubin, Total 0.3 mg/dL (0.2-1.0); Total Protein 6.7 g/dL (6.4-8.2)
[2022-09-29 12:58] LABS: INR 0.95 (0.9-1.15); Partial Thromboplastin Time 31.4 SEC (24.5-34.5)
[~2022-10-01] VITALS: Ht 157.5 cm; Wt 64.9 kg
[~2022-10-01 12:19] MED LIST changes: +BUPR-133 PO; -BUPR1TAB11 PO; +GABA-1308 PO; -GABA100C9 PO; +LOSA25TA15 PO; -LOSA25TA38 PO; -PRO20T PO; +PROP60CA34 PO
[2022-10-01] MEDS ORDERED: SODIUM CHLORIDE LOCK 10 ML ONE (12:27)
[2022-10-01] MEDS: diphenhdrAMINE HCL 50 MG/1 ML VL ONE ×2 (13:05→13:07)
[2022-10-01] MEDS: fentaNYL CITRATE 100 MCG/2 ML VL ONE ×2 (13:05→13:11)
[2022-10-01] MEDS: MIDAZOLAM HCL 5 MG/ML-1ML VIAL ONE ×2 (13:05→13:09)
[2022-10-01 14:13] VITALS: BP 147/70
== END 2022-10-01 14:20 | disposition home or self-care (01) ==
LOC: GI 12:19
PROVIDERS: ATTEND Internal Medicine Gastroenterology
DX: Z12.11 Encounter for screening for malignant neoplasm of colon (principal); Z86.010 Personal history of colon polyps; K63.5 Polyp of colon; K64.0 First degree hemorrhoids
CPT/HCPCS: 36415; 45385; 80053; 81001; 85025; 85610; 85730; J1200; J2250; J3010; J7030; 99152